=== PATIENT | male | born 1980 | race Caucasian/White ===

== ENCOUNTER 2016-08-12 18:51 | Emergency (ER) | payer SELFPAY ==
[2016-08-12 20:19] VITALS: BP 110/72; PULSE 90; RESP 20; TEMP 98.2; O2SAT 96
--- NOTE | 2016-08-12 21:27 | C.PDOC ---
History Of Present Illness 35 yo male come in for evaluation of Right thumb pain , swelling, redness developed along the nail area. Otherwise, pt denies fever, chills, known trauma or injury, deformity, sensory or vascular deficits to Right thumb. Ambulate to ED for evaluation, not in any apparent distress. Time Seen by Provider: 08/12/16 20:21 Chief Complaint (Nursing): Upper Extremity Problem/Injury History Per: Patient Onset/Duration Of Symptoms: Gradual Past Medical History Reviewed: Historical Data, Nursing Documentation, Vital Signs Vital Signs: Last Vital Signs Temp 98.2 F 08/12/16 20:16 Pulse 90 08/12/16 20:16 Resp 20 08/12/16 20:16 BP 110/72 08/12/16 20:16 Pulse Ox 96 08/12/16 20:16 - Medical History PMH: No Chronic Diseases Surgical History: No Surg Hx Family History: States: No Known Family Hx - Social History Hx Alcohol Use: No Hx Substance Use: No - Immunization History Hx Tetanus Toxoid Vaccination: Yes Hx Influenza Vaccination: No Hx Pneumococcal Vaccination: No Review Of Systems Except As Marked, All Systems Reviewed And Found Negative. Constitutional: Negative for: Fever, Chills Skin: Positive for: Lesions Neurological: Negative for: Weakness, Numbness Physical Exam - Physical Exam Appears: Well, Non-toxic, No Acute Distress Skin: Normal Color, Warm, Other (Right thumb: (+)erythema, edema and flactulance over medial aspect nail. No proximal streaking.) Extremity: Normal ROM, Capillary Refill (less than 2sec to Right thumb), No Deformity, No Swelling Neurological/Psych: Oriented x3, Normal Speech, Normal Motor, Normal Sensation, Normal Reflexes ED Course And Treatment O2 Sat by Pulse Oximetry: 96 Progress Note: On re-eavl, pt is afebrile, hemnodynamicaly stable. Non-toxic. Right hand: exam c/w paronychia over medial aspect thumb, s/p I&D. FAROM, no proximal streaking. Abx given, tetanus UTD. Pt advised. ref. to F/u with PMD. - Incision & Drainage Of Abscess Prep Used: Betadine Procedure: Incised W/Scalpel Blade#: (11), Drained Pus, Irrigated Cavity W/ Saline Disposition Counseled Patient/Family Regarding: Diagnosis, Need For Followup, Rx Given - Disposition Referrals: [facility] [Outside] Disposition: HOME/ ROUTINE Disposition Time: 21:01 Condition: STABLE Additional Instructions: Warm salty water finger soaks daily for 5 minutes Take medication as prescribed Follow up with PMD IN 2-3 days for re-evaluation. Return to ED if any worsening or new changes. Prescriptions: Doxycycline Hyclate [Doryx] 100 mg PO BID #14 cap traMADol [Ultram] 50 mg PO TID #7 tab Instructions: Paronychia (ED) - Clinical Impression Clinical Impression: Paronychia
== END 2016-08-12 21:39 | disposition home or self-care (01) ==
LOC: C.ER 18:51
DX: L03.011 Cellulitis of right finger (principal)

== ENCOUNTER 2017-12-03 10:37 | Inpatient (IN) | payer MEDICAID ==
[2017-12-03] MEDS ORDERED: Propofol 10 mg/ml Inj (20 ML) ONE (14:45)
[2017-12-03] MEDS ORDERED: Midazolam 2 MG/2 ML VIAL ONE (14:45)
[2017-12-03] MEDS ORDERED: Lidocaine 4% (Laryng-O-Jet) Kit MM ONE (14:48)
[2017-12-03] MEDS ORDERED: Succinylcholine Chloride 20 mg/ml Syr (5 ml) IV ONE ×2 (14:48→14:54)
[2017-12-03] MEDS ORDERED: Lidocaine 1% 20 MG/2 ML PF AMP ONE (15:01)
[2017-12-03] MEDS ORDERED: metroNIDAZOLE IV 500 mg/100 ml 500 MG/100 ML BAG ONE (15:02)
[2017-12-03] MEDS ORDERED: Bupivacaine 0.25% 20 ML INJ IJ ONE (15:02)
[2017-12-03] MEDS ORDERED: Absorbable Gelatin Sponge Size 100 ONE (15:44)
[2017-12-03] MEDS ORDERED: Rocuronium 10 mg/ml (5 ml) ONE (16:04)
[2017-12-03] MEDS ORDERED: Neostigmine Methylsulfate 3mg/3ml Syringe IV ONE (16:04)
[2017-12-03] MEDS: HYDROmorphone 0.5 mg/0.5 ml ISec IVP PRN ×3 (16:15→16:45)
[2017-12-03] MEDS ORDERED: Dextrose 5%/0.45% NS 1,000 ML IV ONE (18:00)
[2017-12-03] MEDS: Dextrose 5%/0.45% NS 1,000 ML IV SCH (21:32)
[2017-12-03] MEDS: Enoxaparin 30 mg Syringe SC SCH (21:34)
[2017-12-03] MEDS: Oxycodone/Acetaminophen 5/325 mg Tab PO PRN (21:46)
[2017-12-03] MEDS: metroNIDAZOLE IV 250mg/50 ml 250 MG/50 ML BAG IVPB SCH (23:12)
[2017-12-03 23:37] VITALS: RESP 20
--- NOTE | 2017-12-04 04:14 | OP ---
PROCEDURE DATE: 12/03/2017 PREOPERATIVE DIAGNOSIS: Anal stenosis. POSTOPERATIVE DIAGNOSIS: Anal stenosis. PROCEDURE PERFORMED: Anoscopy, Y-V anoplasty. SURGEON: Parth Vicente MD ANESTHESIA: General endotracheal. BLOOD LOSS: 30 mL. POSTOPERATIVE CONDITION: Stable. INDICATIONS FOR SURGERY: This is a 37-year-old male, status post hemorrhoid surgery 15 years ago. Slowly, he has developed increasing problems with moving his bowels, which has gotten much worse over the past couple of months. He was seen in my office and found to have an anal stenosis, now admitted for anoplasty. DESCRIPTION OF PROCEDURE: The patient was taken to the operating room, general anesthesia was administered, placed in the prone Jackknife position with the buttocks taped up. A rectal retractor was inserted into the wound; however, this was done very carefully as the area was very tight when I checked. Once the retractor was in, a fibrous band was felt just below the dentate line which appeared to be the area of the stenosis. A longitudinal incision was made in the rectum onto the anal skin, dividing this band in half. Once this was divided, the rectum was free of any pressure. The internal anal sphincter was grasped with an Allis clamp and divided. A Y-V anoplasty was then performed using multiple interrupted 0 chromic sutures. The patient tolerated the procedure well, returned to recovery room in stable condition. Parth Vicente MD
[2017-12-04] MEDS: Dextrose 5%/0.45% NS 1,000 ML IV SCH (05:00)
[2017-12-04] MEDS: Oxycodone/Acetaminophen 5/325 mg Tab PO PRN ×2 (06:05→12:53)
[2017-12-04] MEDS: metroNIDAZOLE IV 250mg/50 ml 250 MG/50 ML BAG IVPB SCH ×2 (06:07→14:55)
[2017-12-04 06:37] LABS: BASO % 0.4 % (0.0-2.0); EOS # 0.2 K/uL (0.0-0.7); EOS % 1.6 % (0.0-4.0); HEMOGLOBIN 13.3 g/dL (12.0-18.0); LYMPH # 1.4 K/uL (1.0-4.3); LYMPH % 11.9 % (20.0-40.0); MEAN CELL VOLUME 92.4 fL (80.0-94.0); MEAN CORPUSCULAR HEMOGLOBIN 32.5 pg (27.0-31.0); MEAN CORPUSCULAR HGB CONC 35.2 g/dL (33.0-37.0); MEAN PLATELET VOLUME 9.3 fL (7.2-11.7); MONO # 0.9 K/uL (0.0-0.8); NEUT # 8.9 K/uL (1.8-7.0); NEUT % 78.1 % (50.0-75.0); RBC 4.1 Mil/uL (4.40-5.90); RED CELL DISTRIBUTION WIDTH 12.3 % (11.5-14.5); WHITE BLOOD COUNT 11.4 K/uL (4.8-10.8)
[2017-12-04 06:51] LABS: ALB/GLOB RATIO 1.7 (1.0-2.1); ALBUMIN 3.8 g/dL (3.5-5.0); ALT/SGPT 26 U/L (21-72); AST/SGOT 15 U/L (17-59); BLOOD UREA NITROGEN 16 mg/dL (9-20); CALCIUM 8.8 mg/dl (8.6-10.4); GFR AFRICAN-AMERICAN > 60; GFR NON-AFRICAN AMERICAN > 60
[2017-12-04] MEDS: Enoxaparin 30 mg Syringe SC SCH (10:14)
--- NOTE | 2017-12-04 13:24 | CP.PCM.PN ---
Subjective - Date & Time of Evaluation Date of Evaluation: 12/04/17 Time of Evaluation: 13:23 - Subjective Subjective: PRIMARY RN RAHEEM SPOKE WITH DR. GARCIA WHO CLEARED PT FOR D/C HOME TODAY AFTER 1500 DOSE OF FLAGYL. ENTRY LEVEL ACCOUNTING CLERK COMPLETED MED REC FOR D/C PAPERWORK, WELL D /C INFORMATION. SEE BELOW FOR INFORMATION PROVIDED TO PT. NO FURTHER ORDERS. -FOLLOW UP WITH DR. GARCIA (SURGEON) IN HIS OFFICE ON DECEMBER 12. CALL THE OFFICE TOMORROW TO SEE WHAT TIME YOU CAN GO TO HIS OFFICE. -FOLLOW UP WITH DR. DAMON OR YOUR PRIMARY DOCTOR IN THE OFFICE WITHIN 1-2 WEEKS. -DR. GARCIA HAS GIVEN YOU THE FOLLOWING PRESCRIPTIONS; TAKE EXACTLY DIRECTED: 1) TRAMADOL 50 MG---PAIN MEDICINE; THIS MAY MAKE YOU SLEEPY---TAKE 1 TO 2 TABLETS EVERY 6 HOURS NEEDED FOR SEVERE PAIN. 2) COLACE (OVER THE COUNTER)---THIS IS A STOOL SOFTENER---YOU MAY TAKE UP TO 3 TIMES A DAY NEEDED. 3) SITZ BATH (OVER THE COUNTER)---THIS IS TO HELP WITH ANY ANAL DISCOMFORT-- MAY DO TWICE A DAY AND AFTER EACH BOWEL MOVEMENT. -SHOWER TWICE A DAY AND WASH ANAL WOUND WITH WARM SOAP AND WATER TWICE A DAY AND AFTER EACH BOWEL MOVEMENT. -IF YOU HAVE ANY FURTHER QUESTIONS OR CONCERNS, CONTACT DR. GARCIA. Objective - Vital Signs/Intake and Output Vital Signs (last 24 hours): Temp Pulse Resp BP Pulse Ox 97.8 F 61 20 93/60 L 96 12/04/17 08:26 12/04/17 08:26 12/04/17 08:26 12/04/17 08:26 12/04/17 08:26 Intake and Output: 12/04/17 12/04/17 06:59 18:59 Intake Total 1540 Balance 1540 - Medications Medications: Current Medications Docusate Sodium (Colace) 100 mg PO BID [facility] Last Admin: 12/04/17 10:14 Dose: 100 mg Enoxaparin Sodium (Lovenox) 30 mg SC 1000,2200 [facility] Last Admin: 12/04/17 10:14 Dose: 30 mg Dextrose/Sodium Chloride (Dextrose 5%/0.45% Ns 1000 Ml) 1,000 mls @ 80 mls/hr IV .[id number] [facility] Last Admin: 12/04/17 05:00 Dose: Not Given Metronidazole (Flagyl) 250 mg in 50 mls @ 100 mls/hr IVPB Q8H DEIRDRE PRN Reason: Protocol Stop: 12/08/17 23:01 Last Admin: 12/04/17 06:07 Dose: 100 mls/hr Oxycodone/Acetaminophen (Percocet 5/325 Mg Tab) 2 tab PO Q4H PRN PRN Reason: pain Stop: 12/06/17 16:06 Last Admin: 12/04/17 12:53 Dose: 2 tab Pantoprazole Sodium (Protonix Inj) 40 mg IVP DAILY [facility] Last Admin: 12/04/17 10:14 Dose: 40 mg Pneumococcal Polyvalent Vaccine (Pneumovax 23 Vaccine) 0.5 ml IM .ONCE ONE Stop: 12/05/17 10:01 - Labs Labs: 12/04/17 06:25 12/04/17 06:25
--- NOTE | 2017-12-04 14:01 | CP.PCM.HP ---
History of Present Illness - History of Present Illness History of Present Illness: COMPREHENSIVE HISTORY & PHYSICAL EXAM HPI Patient is admitted to the hospital post op. Patient had a annual stenosis and underwent anal plasty. Currently patient is postop recovering with no complaints. PAST HIST. No history of hypertension diabetes or other medical illness PERSONAL HIST: Smoking. N Alcohol. N Allergy N Travel_- . FAMILY HIST : ROS : Constitutional: Negative for weight change, chills, night sweats, fatigue and usage of assist device. Eyes: Negative for redness, swelling, itching, discharge, vision changes, blurry vision, double vision, glaucoma, cataracts, Ears: Negative for hearing loss, ringing, , tinnitus, vertigo Nose: Negative for rhinorrhea, stuffiness, sniffing, itching, postnasal drip, discoloration, nasal congestion and epistaxis. Throat: Negative for throat clearing, sore throat, hoarseness, difficulty swallowing and difficulty speaking. Respiratory: Negative for cough, , sputum production, chest tightness, wheezing, pleuritic chest pain ,daytime somnolence, chronic cough, hemoptysis, snoring at night, Cardiovascular: Negative for chest pain, palpitations, orthopnea, PND, Edema of legs, leg cramps, angina, claudication, , irregular heartbeat, Neurology: Negative for irritability, muscle weakness, numbness and tingling, seizures, tremors, migraines, slurred speech, syncope, memory loss, mood changes , recurrent headaches Gastrointestinal: Negative for difficulty swallowing, diarrhea, constipation, black stools, rectal bleeding, nausea, flatulence, reflux, poor appetite, changes in bowel habits, abdominal pain Genitourinary: Negative for frequent urination, hematuria, discharge, incontinence, urinary retention, frequent UTI, Psychiatric: Negative for depression, anxiety/panic, suicidal tendencies, Musculoskeletal: Negative for swollen joints, back pain, , neck pain, morning stiffness of joints, . Skin: Negative for rash, ulcers, itching, dry skin and pigmented lesions. P/E: Constitutional: Appears stated age and in no apparent distress. Head: Normocephalic. Ears: External ear canals patent without inflammation. Tympanic membranes intact with normal light reflex and landmark. Eyes: Pupils are central, bilaterally equal, symmetrical and reacts to light with normal movements and no icterus or pallor. Nose: External nares are patent. Mucosa is pink Mouth-Throat: Good general appearance and condition. No post-pharyngeal/oropharyngeal erythema and tonsillar hypertrophy. Good dental hygiene. Neck-Lymphatic: Neck is supple with normal ROM, no thyromegaly, lymph nodes or masses. JVD is normal with no carotid bruit. Lungs: Clear to percussion and auscultation with bilateral normal air entry. Cardiovascular: S1 and S2 are normal with no murmurs, gallops and rub. GI Exam: No hepatomegaly. Abdomen is soft and non-tender. No Organomegaly , masses or hernias are evident and bowel sounds are normal and active. Neurology: Higher function and all cranial nerves intact, with no gross motor or sensory deficit. Superficial and deep reflexes are normal with downwards planters. No cerebellar deficit with normal gait. Musculoskeletal: No tender spots with normal curvature of the spine with no swelling or restricted ROM of the small and large joints. Extremities: Homans sign absent. Intact pulses with no pitting edema, calf tenderness or skin color changes. Skin: No rash, eruptions or abnormal skin pigmentation LAB/RADIOLOGY: ASSESMENT : Status post anoplasty recovering with no complication. PLAN: As per the surgical plan patient will be discharged instructions given by the nurse practitioner. Present on Admission - Present on Admission Any Indicators Present on Admission: No Past Patient History - Past Medical History & Family History Past Medical History?: Yes - Past Social History Smoking Status: Light Smoker < 10 Cigarettes Daily - CARDIAC Hx Cardiac Disorders: No - PULMONARY Hx Respiratory Disorders: No - NEUROLOGICAL Hx Neurological Disorder: No - HEENT Hx HEENT Problems: No - RENAL Hx Chronic Kidney Disease: No - ENDOCRINE/METABOLIC Hx Endocrine Disorders: No - HEMATOLOGICAL/ONCOLOGICAL Hx Blood Disorders: No - INTEGUMENTARY Hx Dermatological Problems: No - MUSCULOSKELETAL/RHEUMATOLOGICAL Hx Falls: No - GASTROINTESTINAL Hx Gastrointestinal Disorders: Yes Hx Hemorrhoids: Yes Other/Comment: HX: ANAL STENOSIS - GENITOURINARY/GYNECOLOGICAL Hx Genitourinary Disorders: No - PSYCHIATRIC Hx Substance Use: No - SURGICAL HISTORY Hx Surgeries: No Other/Comment: HX: HEMORRHOIDECTOMY "14 YEARS AGO"-TODAY IS 12/03/17 - ANESTHESIA Hx Anesthesia: Yes Hx Anesthesia Reactions: No Hx Malignant Hyperthermia: No Has any member of the family had a problem w/ anesthesia?: No Meds Home Medications: Home Medication List Medication Instructions Recorded Confirmed Type Docusate [Colace] 100 mg PO BID #0 cap 12/04/17 Rx traMADol [Ultram] 50 mg PO Q6 PRN #20 tab 12/04/17 Rx Allergies/Adverse Reactions: Allergies Allergy/AdvReac Type Severity Reaction Status Date / Time No Known Allergies Allergy Verified 12/01/17 13:41 Results - Vital Signs Recent Vital Signs: Last Vital Signs Temp 97.8 F 12/04/17 08:26 Pulse 61 12/04/17 08:26 Resp 20 12/04/17 08:26 BP 93/60 L 12/04/17 08:26 Pulse Ox 96 12/04/17 08:26 - Labs Result Diagrams: 12/04/17 06:25 12/04/17 06:25 Labs: Laboratory Results - last 24 hr 12/04/17 12/04/17 06:25 06:25 WBC 11.4 H D RBC 4.10 L Hgb 13.3 Hct 37.9 MCV 92.4 MCH 32.5 H MCHC 35.2 RDW 12.3 Plt Count 162 MPV 9.3 Neut % (Auto) 78.1 H Lymph % (Auto) 11.9 L [place] % (Auto) 8.0 Eos % (Auto) 1.6 Baso % (Auto) 0.4 Neut # (Auto) 8.9 H Lymph # (Auto) 1.4 [place] # (Auto) 0.9 H Eos # (Auto) 0.2 Baso # (Auto) 0.0 Sodium 139 Potassium 4.1 Chloride 102 Carbon Dioxide 24 Anion Gap 17 BUN 16 Creatinine 0.8 Est GFR ( Amer) > 60 Est GFR (Non-Af Amer) > 60 Random Glucose 100 Calcium 8.8 Total Bilirubin 1.1 AST 15 L ALT 26 Alkaline Phosphatase 43 Total Protein 6.0 L Albumin 3.8 Globulin 2.2 Albumin/Globulin Ratio 1.7
[2017-12-04 16:11] VITALS: BP 101/64; PULSE 82; TEMP 98.9; O2SAT 95
[2017-12-05] MEDS ORDERED: Pneumococcal 23-Valent Vaccine IM ONE (10:00)
== END 2017-12-04 17:53 | disposition home or self-care (01) | DRG 158 ==
LOC: C.SDS 10:37 → C.9S 16:06 → C.3T 18:58
PROVIDERS: ADMIT Surgery; ATTEND Surgery
PROC: 0DQQ8ZZ Repair Anus, Via Natural or Artificial Opening Endoscopic (ICD-10-PCS; principal; 2017-12-03 14:00)
DX: K62.4 Stenosis of anus and rectum (principal)

== ENCOUNTER 2017-12-15 10:34 | Inpatient (IN) | payer MEDICAID ==
--- NOTE | 2017-12-15 11:29 | C.PDOC ---
History Of Present Illness 37-year-old male, presents to the emergency department for evaluation of rectal discomfort. Patient had an anal stricture procedure, and noted discharge in rectal area 3 days ago. Patient states he saw Dr. Vicente, who noticed dehiscence of the wound. Patient sent to ED for further evaluation. He denies any other associated symptoms. No other complaints at this time. Time Seen by Provider: 12/15/17 11:01 Chief Complaint (Nursing): Medical Clearance History Per: Patient History/Exam Limitations: no limitations Current Symptoms Are (Timing): Still Present Past Medical History Reviewed: Historical Data, Nursing Documentation, Vital Signs Vital Signs: Last Vital Signs Temp 98.9 F 12/15/17 10:38 Pulse 92 H 12/15/17 10:38 Resp 18 12/15/17 10:38 BP 122/79 12/15/17 10:38 Pulse Ox 97 12/15/17 12:39 - [facility] Procedures REPAIR ANUS, VIA NATURAL OR ARTIFICIAL OPENING ENDOSCOPIC (12/03/17) Family History: States: No Known Family Hx - Social History Hx Alcohol Use: No Hx Substance Use: No - Immunization History Hx Tetanus Toxoid Vaccination: Yes Hx Influenza Vaccination: No Hx Pneumococcal Vaccination: No Review Of Systems Except As Marked, All Systems Reviewed And Found Negative. Constitutional: Negative for: Fever, Chills Cardiovascular: Negative for: Chest Pain Respiratory: Negative for: Shortness of Breath Gastrointestinal: Positive for: Rectal Pain. Negative for: Nausea, Abdominal Pain Physical Exam - Physical Exam Appears: Non-toxic, No Acute Distress Skin: Normal Color, Warm, Dry, No Rash Head: Atraumatic, Normacephalic Eye(s): bilateral: Normal Inspection, PERRL, EOMI Nose: Normal Oral Mucosa: Moist Lips: Normal Appearing Neck: Normal ROM Cardiovascular: Rhythm Regular, No Murmur Respiratory: Normal Breath Sounds, No Accessory Muscle Use Gastrointestinal/Abdominal: Soft, No Tenderness Rectal: Tenderness, Other (inflammed anal area, no gross abscess, (+) tenderness ) Back: Normal Inspection Extremity: Normal ROM, No Deformity Neurological/Psych: Oriented x3, Normal Speech ED Course And Treatment - Laboratory Results Result Diagrams: 12/15/17 11:39 O2 Sat by Pulse Oximetry: 97 (RA) Pulse Ox Interpretation: Normal Medical Decision Making Medical Decision Making: Bloodwork ordered and reviewed. Disposition Discussed With : Parth Vicente Doctor Will See Patient In The: Hospital Counseled Patient/Family Regarding: Studies Performed, Diagnosis - Disposition Disposition: HOSPITALIZED Disposition Time: 11:28 Condition: FAIR - Clinical Impression Clinical Impression: Anal infection - Scribe Statement The provider has reviewed the documentation as recorded by the Scribe (Cassi Rhodes) All medical record entries made by the Scribe were at my direction and personally dictated by me. I have reviewed the chart and agree that the record accurately reflects my personal performance of the history, physical exam, medical decision making, and the department course for this patient. I have also personally directed, reviewed, and agree with the discharge instructions and disposition.
[2017-12-15 11:54] LABS: BASO % 0.6 % (0.0-2.0); EOS # 0.2 K/uL (0.0-0.7); EOS % 3.5 % (0.0-4.0); HEMOGLOBIN 14.6 g/dL (12.0-18.0); LYMPH # 1.1 K/uL (1.0-4.3); LYMPH % 15.5 % (20.0-40.0); MEAN CELL VOLUME 90.5 fL (80.0-94.0); MEAN CORPUSCULAR HEMOGLOBIN 32.1 pg (27.0-31.0); MEAN CORPUSCULAR HGB CONC 35.4 g/dL (33.0-37.0); MEAN PLATELET VOLUME 8.7 fL (7.2-11.7); MONO # 0.5 K/uL (0.0-0.8); MONO % 6.7 % (0.0-10.0); NEUT # 5.1 K/uL (1.8-7.0); NEUT % 73.7 % (50.0-75.0); RBC 4.57 Mil/uL (4.40-5.90); RED CELL DISTRIBUTION WIDTH 11.9 % (11.5-14.5); WHITE BLOOD COUNT 6.9 K/uL (4.8-10.8)
[2017-12-15 12:08] LABS: INR 1.1; PROTHROMBIN TIME 12.1 SECONDS (9.7-12.2)
[2017-12-15 12:44] LABS: ALB/GLOB RATIO 1.5 (1.0-2.1); ALBUMIN 4.5 g/dL (3.5-5.0); ALT/SGPT 25 U/L (21-72); AST/SGOT 24 U/L (17-59); BLOOD UREA NITROGEN 19 mg/dL (9-20); CALCIUM 9.5 mg/dl (8.6-10.4); GFR AFRICAN-AMERICAN > 60; GFR NON-AFRICAN AMERICAN > 60
[2017-12-15] MEDS ORDERED: ceFAZolin 1 gm in NS 1 GM/100 ML BAG IVPB ONE (14:07)
[2017-12-15] MEDS ORDERED: Propofol 10 mg/ml Inj (20 ML) ONE (14:09)
[2017-12-15] MEDS ORDERED: Midazolam 2 MG/2 ML VIAL ONE (14:09)
[2017-12-15] MEDS ORDERED: Lactated Ringer's 1,000 ML IV ONE ×2 (14:46)
[2017-12-15] MEDS: HYDROmorphone 0.5 mg/0.5 ml ISec IVP PRN ×2 (15:13→15:24)
[2017-12-15] MEDS: metroNIDAZOLE IV 500 mg/100 ml 500 MG/100 ML BAG IVPB SCH ×2 (15:14→23:57)
[2017-12-15] MEDS ORDERED: HYDROmorphone 0.5 mg/0.5 ml ISec ONE (15:26)
[2017-12-15 16:30] VITALS: RESP 20
[2017-12-15] MEDS: Oxycodone/Acetaminophen 5/325 mg Tab PO PRN (19:17)
[2017-12-16] MEDS: Oxycodone/Acetaminophen 5/325 mg Tab PO PRN ×2 (00:02→05:57)
--- NOTE | 2017-12-16 06:45 | OP ---
Copied To: Parth Vicente MD Attending MD: Parth Vicente MD PROCEDURE DATE: 12/15/2017 PREOPERATIVE DIAGNOSIS: Rectal wound dehiscence with abscess. POSTOPERATIVE DIAGNOSIS: Rectal wound dehiscence with abscess. PROCEDURE PERFORMED: Drainage of pelvic abscess with repair of rectal wound dehiscence. SURGEON: Parth Vicente MD ANESTHESIA: General endotracheal. ESTIMATED BLOOD LOSS: 40 mL. POSTOPERATIVE CONDITION: Stable. INDICATIONS FOR SURGERY: This is a 37-year-old male who underwent ____ anoplasty for an anal stenosis, presented to my office with pus draining on his rectal wound. Digital exam revealed there appeared to be dehiscence in the suture line with possibility of an infection. Because of this, he is admitted to the emergency room today for examination under anesthesia and definitive treatment. GROSS FINDINGS: There was dehiscence of the rectal wound. It was also associated with a collection, which was drained and cultured. After vigorous irrigation and cleansing of rectal wound, the dehiscence was repaired with 0 Monocryl suture. DESCRIPTION OF PROCEDURE: The patient was taken to the operating room, general anesthesia administered and placed in lithotomy position. The rectal area was prepped and draped. The above findings were noted on anoscopy. After vigorous irrigation of the rectal canal the abscess, the rectal dehiscence was repaired with 0 Monocryl sutures. Larger blood vessel was repaired. The patient tolerated the procedure well, returned to the recovery room in stable condition. Parth Vicente MD
[2017-12-16 07:34] LABS: BASO % 0.5 % (0.0-2.0); EOS # 0.4 K/uL (0.0-0.7); EOS % 4.4 % (0.0-4.0); HEMOGLOBIN 14.4 g/dL (12.0-18.0); LYMPH # 1.5 K/uL (1.0-4.3); MEAN CELL VOLUME 90.5 fL (80.0-94.0); MEAN CORPUSCULAR HEMOGLOBIN 32.1 pg (27.0-31.0); MEAN CORPUSCULAR HGB CONC 35.5 g/dL (33.0-37.0); MEAN PLATELET VOLUME 8.7 fL (7.2-11.7); MONO # 0.8 K/uL (0.0-0.8); MONO % 7.8 % (0.0-10.0); NEUT # 7.1 K/uL (1.8-7.0); NEUT % 72.3 % (50.0-75.0); RBC 4.48 Mil/uL (4.40-5.90); RED CELL DISTRIBUTION WIDTH 11.9 % (11.5-14.5); WHITE BLOOD COUNT 9.9 K/uL (4.8-10.8)
[2017-12-16 07:39] LABS: BLOOD UREA NITROGEN 22 mg/dL (9-20); CALCIUM 9.2 mg/dl (8.6-10.4); GFR AFRICAN-AMERICAN > 60; GFR NON-AFRICAN AMERICAN > 60
[2017-12-16 08:06] VITALS: BP 100/61; PULSE 62; TEMP 97.6; O2SAT 96
[2017-12-16] MEDS: metroNIDAZOLE IV 500 mg/100 ml 500 MG/100 ML BAG IVPB SCH (08:57)
== END 2017-12-16 13:20 | disposition home or self-care (01) | DRG 581 ==
LOC: C.ER 10:34 → C.9E 11:27 → C.6T 13:05 → OBSVTOIN 14:46
PROVIDERS: ADMIT Surgery; ATTEND Surgery
PROC: 0DQQXZZ Repair Anus, External Approach (ICD-10-PCS; principal; 2017-12-15 15:45)
PROC: 0J9C0ZX Drainage of Pelvic Region Subcutaneous Tissue and Fascia, Open Approach, Diagnostic (ICD-10-PCS; 2017-12-15 15:45)
DX: T81.4XXA Infection following a procedure, initial encounter (principal); T81.31XA Disruption of external operation (surgical) wound, not elsewhere classified, initial encounter; K65.1 Peritoneal abscess; Y83.8 Other surgical procedures as the cause of abnormal reaction of the patient, or of later complication, without mention of misadventure at the time of the procedure